=== PATIENT | female | born 1995 | race Caucasian/White ===

== ENCOUNTER 2016-06-03 14:12 | Emergency (ER) | payer OTHER ==
[2016-06-03 14:15] VITALS: BP 123/72; BMI 28.7
--- NOTE | 2016-06-03 14:33 | DR.GENAD ---
HPI - PCP Primary Care Physician: NFD - Complaint/Symptoms Chief Complaint Doctors Comments: Patient reports that she had eye pain on three days ago, was seen by physician and diagnosed with pink eye. Patient stats that the eye has gotten worse. Chief Complaint:: PATIENT STATED THAT HER LT. EYE HAS BEEN RED AND SLIGHTLY PAINFUL FOR 3 DAYS. - Source History Provided: Patient - Mode of Arrival Mode of Arrival: Ambulatory - Timing Onset of Chief Complaint: 05/31/16 PMH - PMH Past Medical History: No Past Surgical History: No Surgical History: [employer] Surgery - Family History History of Family Medical Conditions: No - Social History Does patient currently use any type of tobacco product: Yes Have you used tobacco products in the last 12 months: Yes Type of Tobacco Use: Cigarettes Does any household member use tobacco: No Alcohol Use: None Do you use any recreational Drugs:: No Lives With: Spouse Lives Where: Home - infectious screening In the last 2 months have you had wt loss of >10#?: NO Have you had fever, night sweats or hemotysis?: No Have you traveled outside the country in the last 6 months?: No Isolation: Standard ROS - Review of Systems Constitutional: No Symptoms Reported Eyes: Blurred Vision, Other (red conjunctiva) ENTM: No Symptoms Reported Respiratoy: No Symptoms Reported Cardiovascular: No Symptoms Reported Gastrointestinal/Abdominal: No Symptoms Reported Genitourinary: No Symptoms Reported Neurological: No Symptoms Reported Musculoskeletal: No Symptoms Reported Integumentary: No Symptoms Reported Hematologic/Lymphatic: No Symptoms Reported Endocrine: No Symptoms Reported Psychiatric: No Symptoms Reported All Other Systems: Reviewed and Negative PE - Vital Signs Vitals: Temperature 98.2 F Pulse Rate 90 Respiratory Rate 18 Blood Pressure 123/72 O2 Sat by Pulse Oximetry 99 - General Limitations: No Limitations General Appearance: Alert - Head Head Exam: Normal Inspection, Atraumatic - Eyes Eye exam: Normal Appearance, PERRL, EOMI, Scleral Icterus (red), Conjunctival Injection - ENT ENT Exam: Normal Exam, Normal Oropharynx External Ear Exam: Normal External Inspection TM/Canal Exam: Bilateral Normal Nose Exam: Normal Nose Exam Mouth Exam: Normal Inspection Throat Exam: Normal Inspection - Neck Neck Exam: Normal Inspection - Chest Chest Inspection: Normal Inspection - Respiratory Respiratory Exam: Normal Lung Sounds Bilat Respiratory Exam: Bilateral Clear to Auscultation - Cardiovascular Cardiovascular Exam: Regular Rate, Normal Rhythm - Abdominal Exam Abdominal Exam: Normal Inspection, Normal Bowel Sounds Abdominal Tenderness: negative: RUQ, RLQ, LUQ, LLQ, Epigastrium, Suprapubic, Diffuse, Mild, Moderate, Severe, Other - Extremities Extremities Exam: Full ROM - Back Back Exam: Normal Inspection - Neurologic Neurological Exam: Alert, Oriented X3, CN II-XII Intact Course - Treatment Treatment: visual acuity 20/40 both - Diagnosis Discharge Problem: Conjunctivitis, acute hemorrhagic - Discharge Plan Condition: Stable - Follow ups/Referrals Follow ups/Referrals: NFD,None [Primary Care Provider] - 3 days - Instructions
== END 2016-06-03 14:46 | disposition home or self-care (01) ==
LOC: ER 14:12
DX: B30.3 Acute epidemic hemorrhagic conjunctivitis (enteroviral) (principal)
CPT/HCPCS: 99281; 99282

== ENCOUNTER 2016-08-02 22:14 | Emergency (ER) | payer OTHER ==
[2016-08-02 22:15] VITALS: BP 123/72
[2016-08-02 22:20] VITALS: BMI 29.3
== END 2016-08-02 23:29 | disposition left against medical advice (07) ==
LOC: ER 22:14 → SUPCPDRO 22:14 → ER 23:29
DX: R10.84 Generalized abdominal pain (principal)
CPT/HCPCS: 99281